=== PATIENT | female | born 1990 | race Caucasian/White ===

== ENCOUNTER 2018-04-14 11:35 | Emergency (ER) | payer OTHER ==
[2018-04-14 12:16] VITALS: BP 125/80
--- NOTE | 2018-04-14 14:22 | XRAY Report ---
Reason: fall Procedure Date: 04/14/2018 Accession Number: [id number] / [id number] Procedure: XR - Ankle 3 View LT CPT Code: FULL RESULT: EXAM: LEFT ANKLE RADIOGRAPHY EXAM DATE: 04/14/2018 02:00 PM. CLINICAL HISTORY: Fall. COMPARISON: None. TECHNIQUE: 3 views. FINDINGS: Bones: No definite fracture is seen. A more sharply angulated 2 mm calcific density seen inferior to the distal tip of the fibula. Joints: Normal. No effusion. No subluxations. The ankle mortise is symmetric. Soft Tissues: Soft tissue swelling is seen around the ankle. IMPRESSION: Soft tissue swelling with calcific density inferior to the distal tip of the fibula possibly indicating ligamentous injury. RADIA
[2018-04-14] MEDS ORDERED: TETANUS/DIPHTHERIA/PERTUSSIS 0.5 ML SYRINGE IM ONE (14:32)
[2018-04-14] MEDS ORDERED: HYDROcod/ACETAM 5/325 MG TABLET PO STA (14:32)
--- NOTE | 2018-04-14 14:35 | ED Physician Documentation ---
PD HPI LOWER EXT INJURY - Stated complaint Stated Complaint: L ANKLE INJ - Chief complaint Chief Complaint: Ext Problem - History obtained from History obtained from: Patient - History of Present Illness PD HPI LOW EXT INJURY LOCATION: Left (She inverted her left ankle while walking today after trip. She also skinned her right knee. No other injuries.) Where injury occurred: Home Pain level max: 6 Review of Systems Constitutional: reports: Reviewed and negative Throat: reports: Reviewed and negative Cardiac: reports: Reviewed and negative PD PAST MEDICAL HISTORY - Present Medications Home Medications: Ambulatory Orders Medication Instructions Recorded Confirmed Hydrocodone/Acetaminophen 1 - 2 each PO Q6H PRN #10 tablet 04/14/18 [Hydrocodon-Acetaminophen 5-325] - Allergies Allergies/Adverse Reactions: Allergies Allergy/AdvReac Type Severity Reaction Status Date / Time amoxicillin Allergy Anaphylaxis Verified 04/14/18 12:17 Penicillins Allergy Edema Verified 04/14/18 12:17 PD ED PE NORMAL - Vitals Vital signs reviewed: Yes - General General: Alert and oriented X 3, No acute distress - Extremities Extremities: Other (There is an abrasion anterior to the right knee without tenderness. Full range of motion there. She is tender over the ATFL on the left with swelling there but no medial malleolar or foot tenderness or proximal fibular tenderness.) - Neuro Neuro: Alert and oriented X 3, Normal speech Results - Vitals Vitals: Vital Signs - 24 hr 04/14/18 12:12 Temperature 36.3 C L Heart Rate 91 Respiratory 16 Rate Blood Pressure 125/80 O2 Saturation 100 Oxygen O2 Source Room air - Rads (name of study) L ankle 3v Radiology: EMP read contemporaneously (Soft tissue swelling with a calcific density inferior to the distal tip of the fibula possibly indicating ligamentous injury.) PD MEDICAL DECISION MAKING - ED course ED course: This is a 27-year-old woman with left ankle sprain and abrasion on the right knee. The wounds was cleansed. Tetanus was updated. She was placed in a walking boot and given crutches. Departure - Departure Disposition: 01 Home, Self Care Clinical Impression: Abrasion, right knee, initial encounter Left ankle sprain Qualifiers: Encounter type: initial encounter Involved ligament of ankle: anterior talofibular ligament Qualified Code(s): S93.492A - Sprain of other ligament of left ankle, initial encounter Condition: Good Record reviewed to determine appropriate education?: Yes Instructions: ED Sprain Ankle W X Ray Follow-Up: [facility] [Provider Group] - Within 1 week Prescriptions: Hydrocodone/Acetaminophen [Hydrocodon-Acetaminophen 5-325] 1 - 2 each PO Q6H PRN #10 tablet PRN Reason: pain Forms: Activity restrictions
== END 2018-04-14 15:15 | disposition home or self-care (01) ==
LOC: ED 11:35
DX: S80.212A Abrasion, left knee, initial encounter (principal); S93.492A Sprain of other ligament of left ankle, initial encounter; W01.0XXA Fall on same level from slipping, tripping and stumbling without subsequent striking against object, initial encounter; Y93.01 Activity, walking, marching and hiking; Z23 Encounter for immunization
CPT/HCPCS: 73610; 90471; 90715; 99283; A9270